=== PATIENT | female | born 1955 ===

== ENCOUNTER 2016-11-19 10:36 | Emergency (ER) | payer OTHER ==
--- NOTE | 2016-11-19 11:06 | UC ---
Eye Complaint HPI - HPI Summary HPI Summary: Patient presents with complaints of left eye soft tissue swelling surrounding the eye, slight redness. 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 She denies any eye pain, change in vision, or trauma. - History of Current Complaint Chief Complaint: UCEye Stated Complaint: LEFT EYE Time Seen by Provider: 11/19/16 10:44 Hx Obtained From: Patient ?: No Onset/Duration: Gradual Onset, Lasting Days Timing: Constant Severity Initially: Mild Severity Currently: Mild Aggravating Factor(s): Nothing Alleviating Factor(s): Nothing Associated Signs And Symptoms: Positive: Drainage (Clear), Swelling Related History: Similar Episode - shaq-orbit cellulitis - Risk Factors Penetrating Injury Risk Factor: Negative Globe Rupture Risk Factors: Negative - Allergies/Home Medications Allergies/Adverse Reactions: Allergies Allergy/AdvReac Type Severity Reaction Status Date / Time Amoxicillin [From Augmentin] Allergy Rash Verified 11/19/16 10:49 Clavulanic Acid Allergy Rash Verified 11/19/16 10:49 [From Augmentin] Sulfa Antibiotics Allergy Unknown Verified 11/19/16 10:49 Reaction Details Home Medications: Home Medications Aspirin [Aspirin 81 MG TAB] 11/19/16 [History] PMH/Surg Hx/FS Hx/Imm Hx Previously Healthy: Yes - Surgical History Surgical History: Yes Surgery Procedure, Year, and Place: tonsilectomy and c section - Family History Known Family History: Positive: Cardiac Disease, Hypertension - Social History Occupation: Employed Full-time Lives: With Family Alcohol Use: None Substance Use Type: None Smoking Status (MU): Never Smoked Tobacco Review of Systems Constitutional: Negative Skin: Negative Eyes: Drainage, Eye Redness, Other - slight redness of upper and lower lids. ENT: Negative Respiratory: Negative Cardiovascular: Negative Gastrointestinal: Negative Genitourinary: Negative Motor: Negative Neurovascular: Negative Musculoskeletal: Negative Neurological: Negative Psychological: Negative All Other Systems Reviewed And Are Negative: Yes Physical Exam Triage Information Reviewed: Yes Vital Signs: Initial Vital Signs Temp 97.3 F 11/19/16 10:50 Pulse 72 11/19/16 10:50 Resp 16 11/19/16 10:50 BP 157/89 11/19/16 10:50 Pulse Ox 100 11/19/16 10:50 Eyes: Positive: Conjunctiva Inflamed, Other: - mild swelling and erythma of upper and lower lids. eoms intact. ENT Exam: Normal Dental Exam: Normal Neck exam: Normal Neck: Positive: 1 Respiratory Exam: Normal Cardiovascular Exam: Normal Abdominal Exam: Normal Musculoskeletal Exam: Normal Neurological Exam: Normal Psychological Exam: Normal Skin Exam: Normal Eye Complaint Course/Dx - Course Course Of Treatment: Patient presents with 2 day onset clinical findings of mild shaq-orbital cellulitis. She was RX keflex and erthromyin opth ointment. I did discuess with her my concerns regarding worsening cellulitis and my limitations in the clincin today. I did recommend that if her pain, redness or swelling gets worse that she must get to the er or any eye doctors as soon as possible. She did not want to go the ER today, and I did not have a eye doctor available here at this time. She verbalized understanding and was in greement with the discharge plan. - Differential Dx/Diagnosis Differential Diagnosis/HQI/PQRI: Other - periorbit cellulitis Provider Diagnoses: periorbit cellulitis Discharge - Discharge Plan Condition: Stable Disposition: HOME Prescriptions: Cephalexin CAP* [Keflex CAP*] 500 mg PO QID #40 cap Erythromycin OPHTH.OINT* [Ilotycin OPHTH.OINT*] 1 applic LEFT EYE BEDTIME #1 ophth.oint Patient Education Materials: Periorbital Cellulitis in Adults (ED) Referrals: Ambar Paris MD [Primary Care Provider] - Additional Instructions: You should see an eye doctor in 2 days, and if you have more pain, redness or swelling you will need to go to the nearest ER at once.
== END 2016-11-19 11:11 | disposition home or self-care (01) ==
LOC: UCEAST 10:36
DX: L03.213 Periorbital cellulitis (principal); Z79.82 Long term (current) use of aspirin; Z88.1 Allergy status to other antibiotic agents; Z88.2 Allergy status to sulfonamides
CPT/HCPCS: 99202; G0463